=== PATIENT | female | born 1940 | race African-American/Black ===

== ENCOUNTER 2023-11-09 12:11 | Emergency (ER) | payer MEDICARE, OTHER ==
[~2023-11-09] VITALS: Ht 162.6 cm; Wt 95.0 kg
[~2023-11-09 12:11] MED LIST: ALBU6.7H3 INH; APIX5TAB MT; ATOR40TA70 MT; BISA-81 MT; CARV3.1242 MT; CLON-493 MT; DEXA4TAB MT; FERR325T6 MT; FURO40TA5 MT; LENA15CA2 MT; METO5TAB7 MT; OXYB5TAB17 MT; OXYC1TAB12 PO; POTA-204 MT; POTA-205 MT; PREG100C55 PO
[2023-11-09 12:21] VITALS: O2SAT 100
[2023-11-09 13:15] VITALS: BP 112/73; PULSE 120; RESP 14
[2023-11-09] MEDS ORDERED: LACTATED RINGERS 1,000 ML IV SCH (14:00)
== END 2023-11-09 14:10 | disposition left against medical advice (07) ==
LOC: ER 12:11
DX: R41.82 Altered mental status, unspecified (principal); I11.0 Hypertensive heart disease with heart failure; I50.9 Heart failure, unspecified; E78.00 Pure hypercholesterolemia, unspecified; Z79.899 Other long term (current) drug therapy
CPT/HCPCS: 93005; 99283